=== PATIENT | female | born 1990 | race Caucasian/White ===

== ENCOUNTER 2023-06-01 19:55 | Emergency (ER) | payer SELFPAY ==
--- NOTE | 2023-06-01 21:59 | RAD REPORT ---
EXAM DESCRIPTION: RAD - Chest Pa And Lat (2 Views) - 06/01/2023 9:03 pm CLINICAL HISTORY: Congestion;Cough COMPARISON: No comparisons TECHNIQUE: PA and lateral views of the chest were obtained. FINDINGS: Mild patchy streaky central predominant perihilar and basilar opacity. Heart size is porsche l and central vasculature is within normal limits. No pleural effusion or pneumothorax seen. No acute bony finding noted. IMPRESSION: Perihilar and basilar central predominant opacities, may reflect multifocal pneumonia or pulmonary edema.
--- NOTE | 2023-06-01 22:21 | ER ---
Nurse's Notes [facility] Name: Radha Boston Age: 32 yrs Sex: Female : 1990 Arrival Date: 06/01/2023 Time: 19:55 Bed DIS3 Private MD: Diagnosis: Influenza due to identified novel influenza A virus-B;Pneumonia, unspecified organism Presentation: 06/01 20:30 Chief complaint: Patient states: I have been having cough and nasal congestion for the ha1 past two month, and since a week ago, I started to feel SOB. Coronavirus screen: Vaccine status: Patient reports being unvaccinated. Ebola Screen: No symptoms or risks identified at this time. Initial Sepsis Screen: Does the patient meet any 2 criteria? No. Patient's initial sepsis screen is negative. Does the patient have a suspected source of infection? No. Patient's initial sepsis screen is negative. Risk Assessment: Do you want to hurt yourself or someone else? Patient reports no desire to harm self or others. Onset of symptoms was May 01, 2023. 20:30 Method Of Arrival: Ambulatory ha1 20:30 Acuity: MARILY 3 ha1 Triage Assessment: 20:34 General: Appears uncomfortable, Behavior is cooperative. Pain: Complains of pain in ha1 chest pain when coughing Pain does not radiate. Pain at worst was 6 out of 10 on a pain scale. Neuro: Level of Consciousness is awake, alert, obeys commands, Oriented to person, place, time, situation. Cardiovascular: Capillary refill < 3 seconds Patient's skin is warm and dry. Respiratory: Airway is patent Respiratory effort is even, unlabored, Respiratory pattern is regular, symmetrical. Historical: - Allergies: 20:34 PENICILLINS; ha1 20:34 Strattera; ha1 - PMHx: 20:34 Depressive disorder; Anxiety; ha1 - PSHx: 20:34 Tonsillectomy; right breast lompectomy; ha1 - Immunization history:: Adult Immunizations up to date. - Social history:: Smoking status: Patient denies any tobacco usage or history of. Screenin:38 Abuse screen: Denies threats or abuse. Denies injuries from another. ha1 22:34 [facility] ED Fall Risk Assessment (Adult) History of falling in the last 3 months, kl including since admission No falls in past 3 months (0 pts) Confusion or Disorientation No (0 pts) Intoxicated or Sedated No (0 pts) Impaired Gait No (0 pts) Mobility Assist Device Used No (0 pt) Altered Elimination No (0 pt) Score/Fall Risk Level 0 - 2 = Low Risk Oriented to surroundings, Maintained a safe environment. Nutritional screening: No deficits noted. Tuberculosis screening: No symptoms or risk factors identified. Assessment: 22:00 General: Appears in no apparent distress. Behavior is calm, cooperative. kl Cardiovascular: No deficits noted. Respiratory: Airway is patent Trachea midline Respiratory effort is even, unlabored, Respiratory pattern is regular, symmetrical, Breath sounds are clear bilaterally. Vital Signs: 20:30 BP 127 / 84; Pulse 100; Resp 18 S; Temp 98.1; Pulse Ox 99% on R/A; Weight 76.2 kg; ha1 Height 5 ft. 3 in. ; 20:30 Body Mass Index 29.76 (76.20 kg, 160.02 cm) ha1 ED Course: 19:59 Patient arrived in ED. gm2 20:00 Bernice Young FNP-C is PHCP. kb 20:00 Leeroy Mason MD is Attending Physician. kb 20:34 Triage completed. ha1 20:44 COVID-19 SARS RT PCR Sent. jj7 20:44 Flu Sent. jj7 21:05 Chest Pa And Lat (2 Views) XRAY In Process Unspecified. EDMS 22:33 Patient has correct armband on for positive identification. kl 22:34 No provider procedures requiring assistance completed. Patient did not have IV access kl during this emergency room visit. Administered Medications: No medications were administered Medication: 22:34 VIS not applicable for this client. Outcome: 22:21 Discharge ordered by . kb 22:33 Discharged to home ambulatory, with family, kl 22:33 Condition: good 22:33 Discharge instructions given to patient, Instructed on discharge instructions, follow up and referral plans. medication usage, Demonstrated understanding of instructions, follow-up care, medications, Prescriptions given X 2, 22:35 Patient left the ED. Signatures: Dispatcher [employer] EDVT Bernice Young FNP-C FNP-Ckb Lewis, Kimberly, RN RN Leticia Gonzales RN RN 1 Ayaan Kang RN RN jj7 Sofi Caballero gm2
--- NOTE | 2023-06-01 22:21 | EDPHYS ---
Physician Documentation [facility] Name: Radha Boston Age: 32 yrs Sex: Female : 1990 Arrival Date: 06/01/2023 Time: 19:55 Bed DIS3 Private MD: ED Physician Leeroy Mason HPI: 06/02 00:29 This 32 yrs old Female presents to ER via Ambulatory with complaints of Painful Cough, kb Congestion, Headache, Shortness Of Breath. 00:29 The patient or guardian reports cough, that is intermittent, described as moderate. kb Onset: The symptoms/episode began/occurred 2 month(s) ago. Severity of symptoms: At their worst the symptoms were moderate, in the emergency department the symptoms are unchanged. Modifying factors: The symptoms are alleviated by nothing, the symptoms are aggravated by nothing. Associated signs and symptoms: The patient has no apparent associated signs or symptoms. The patient has not experienced similar symptoms in the past. The patient has not recently seen a physician. Patient is a 32-year-old female who presents for cough, congestion, shortness of breath, headache for 2 months. Denies fever.. Historical: - Allergies: 06/01 20:34 PENICILLINS; ha1 20:34 Strattera; ha1 - PMHx: 20:34 Depressive disorder; Anxiety; ha1 - PSHx: 20:34 Tonsillectomy; right breast lompectomy; ha1 - Immunization history:: Adult Immunizations up to date. - Social history:: Smoking status: Patient denies any tobacco usage or history of. ROS: 06/02 00:27 Constitutional: Negative for fever, chills, and weight loss, kb ENT: Positive for sinus congestion, Respiratory: Positive for cough, shortness of breath, Neuro: Positive for headache, All other systems are negative, Exam: 00:27 Constitutional: This is a well developed, well nourished patient who is awake, alert, kb and in no acute distress. Head/Face: Normocephalic, atraumatic. ENT: Moist Mucous membranes Cardiovascular: Regular rate Respiratory: Respirations even and unlabored. No increased work of breathing. Talking in full sentences Abdomen/GI: Soft, non-tender. No distention Skin: Warm, dry with normal turgor. Normal color. MS/ Extremity: Pulses equal, no cyanosis. Neurovascular intact. Full, normal range of motion. Neuro: Awake and alert, GCS 15, oriented to person, place, time, and situation. Moves all extremities. Normal gait. Vital Signs: 06/01 20:30 BP 127 / 84; Pulse 100; Resp 18 S; Temp 98.1; Pulse Ox 99% on R/A; Weight 76.2 kg; ha1 Height 5 ft. 3 in. ; 20:30 Body Mass Index 29.76 (76.20 kg, 160.02 cm) ha1 MDM: 20:00 Patient medically screened. kb 06/02 00:27 Differential Diagnosis: Bronchitis Influenza Upper Respiratory Infection Viral Syndrome kb Pneumonia. Data reviewed: vital signs, nurses notes. Consideration of Admission/Observation Escalation of care including admission/observation considered. admission considered for pneumonia, but pt is afebrile, nontoxic in appearance, resp even and unlabored, lungs clear bilaterally, oxygen sat 99% on room air. . Test considered but Not performed: Labs: cbc, basic considered, but pt is nontoxic in appearance, resp even and unlabored, vital signs wnl. Counseling: I had a detailed discussion with the patient and/or guardian regarding the historical points, exam findings, and any diagnostic results supporting the discharge/admit diagnosis, lab results, radiology results, the need for outpatient follow up, a family practitioner, to return to the emergency department if symptoms worsen or persist or if there are any questions or concerns that arise at home. 00:29 I considered the following discharge prescriptions or medication management in the emergency department Antivirals: At this time, antivirals are not recommended. 06/01 20:17 Order name: Flu; Complete Time: 22:17 kb 06/01 20:17 Order name: COVID-19 SARS RT PCR; Complete Time: 21:41 kb 06/01 20:27 Order name: Chest Pa And Lat (2 Views) XRAY; Complete Time: 22:03 kb Administered Medications: No medications were administered Disposition Summary: 06/01/23 22:21 Discharge Ordered Notes: Location: Home Condition: Stable kb Diagnosis - Influenza due to identified novel influenza A virus - B kb - Pneumonia, unspecified organism kb Followup: kb - With: Emergency Department - When: As needed - Reason: Worsening of condition Followup: kb - With: Private Physician - When: 2 - 3 days - Reason: Recheck today's complaints, Continuance of care, Re-evaluation by your physician Discharge Instructions: - Discharge Summary Sheet kb - Community-Acquired Pneumonia, Adult, [id number] kb - Influenza, Adult, [id number] kb Forms: - Medication Reconciliation Form kb - Thank You Letter kb - Antibiotic Education kb - Prescription Opioid Use kb - Patient Portal Instructions kb - Leadership Thank You Letter kb Prescriptions: - albuterol sulfate 90 mcg/actuation Inhalation HFA Aerosol Inhaler - inhale 2 puff INHALATION route every 4 to 6 hours As needed; 1 unit; Refills: kb 0, Product Selection Permitted - Prednisone 20 mg Oral Tablet - take 1 tablet ORAL route once daily for 5 days; 5 tablet; Refills: 0, Product kb Selection Permitted - Zithromax 500 mg Oral Tablet - take 1 tablet ORAL route once daily for 5 days; 5 tablet; Refills: 0, Product kb Selection Permitted Addendum: 06/06/2023 10:10 I was immediately available for consultation during this patient's visit. I did not e c2 personally see the patient or guide the patient's care.. Signatures: Dispatcher [employer] Bernice Knowles, LEVELER HELPER-C JOLIE-Leticia Ortiz RN RN ha1 Leeroy Mason MD MD ec2
[2023-06-01 22:53] VITALS: BP 127/84; TEMP 98.1; O2SAT 99
== END 2023-06-01 22:35 | disposition home or self-care (01) ==
LOC: ER 19:55
DX: J10.00 Influenza due to other identified influenza virus with unspecified type of pneumonia (principal); Z11.52 Encounter for screening for COVID-19
CPT/HCPCS: 71046; 87635; 87804; 99283